=== PATIENT | male | born 1995 | race African-American/Black ===

== ENCOUNTER 2022-02-24 16:14 | Outpatient (REF) | payer OTHER, SELFPAY ==
[2022-03-02 04:32] LABS: Stone Source KIDNEY STONE
== END 2022-02-24 16:15 | disposition home or self-care (01) ==
LOC: HO.LAB 16:14
DX: N20.0 Calculus of kidney (principal)
CPT/HCPCS: 82365; 88300

== ENCOUNTER 2022-08-03 09:30 | Outpatient (REF) | payer OTHER, SELFPAY ==
--- NOTE | ~2022-08-03 | US_ITS ---
EXAMINATION: US RETROPERITONEAL LIMITED (RENAL ONLY) CLINICAL INFORMATION: Calculus of kidney. COMPARISON: None TECHNIQUE: Real-time imaging of the kidneys. Limited visualization due to bowel gas and body habitus. FINDINGS: RIGHT KIDNEY: 10.0 x 7.1 x 6.4 cm (SAG x AP x TRV). No hydronephrosis. No renal calculi. Limited visualization. LEFT KIDNEY: 11.0 x 6.4 x 5.3 cm (SAG x AP x TRV). No hydronephrosis. No renal calculi. Limited visualization. US/US renal BI IMPRESSION: No hydronephrosis. No renal calculi. Limited visualization.
== END 2022-08-03 09:31 | disposition home or self-care (01) ==
LOC: HO.HMGCX 09:30
PROVIDERS: PCP Internal Medicine
DX: N20.0 Calculus of kidney (principal)
CPT/HCPCS: 76775

== ENCOUNTER 2022-09-21 10:23 | Outpatient (REF) | payer OTHER, SELFPAY ==
[2022-09-21 16:56] LABS: Urine Cytology See Pathology rpt
== END 2022-09-21 10:24 | disposition home or self-care (01) ==
LOC: HO.LAB 10:23
PROVIDERS: PCP Internal Medicine; Visit Provider Nurse Practitioner Family
DX: R31.29 Other microscopic hematuria (principal); N20.0 Calculus of kidney
CPT/HCPCS: 88112